=== PATIENT | female | born 1940 | race American Indian/Alaskan Native ===

== ENCOUNTER 2021-07-19 15:01 | Emergency (ER) | payer MEDICARE ==
--- NOTE | 2021-07-19 16:10 | Emergency Department Report ---
HPI - General Chief Complaint: Hypoglycemia Time Seen by Provider: 07/19/21 15:57 - HPI HPI: 81-year-old -[place] female [place] the emergency department [place] after she had a syncopal episode and was found to have a low blood sugar of about 30. The patient was given an amp of D50 and a peanut butter sandwich and she greatly improved. At the time of my examination the patient is awake, alert, oriented, AAO x3, and says that she feels "great" at her baseline. She takes NovoLog 70/30 with 30 units in the morning and 40 units around dinnertime. She did eat breakfast this morning, but did not eat any lunch. She also has a past medical history of hypertension and hyperlipidemia. She denies any fever, vision change, headache, chest pain, shortness of breath. ED Past Medical Hx - Social History Smoking Status: Never Smoker Substance Use Type: None - Medications Home Medications: Home Medications Medication Instructions Recorded Confirmed Last Taken Type Cetirizine HCl [ZyrTEC 10mg cap] 10 mg PO 07/19/21 07/19/21 09:00 History Ezetimibe [Zetia] 10 mg PO QDAY 07/19/21 07/19/21 07/18/21 19:00 History Furosemide [Lasix] 40 mg PO DAILY 07/19/21 07/19/21 07/19/21 08:00 History Gabapentin 300 mg PO 07/19/21 07/19/21 09:00 History Insulin NPH Hum/Reg Insulin Hm 30 units SQ QAM 07/19/21 07/19/21 07/19/21 08:00 History [Novolin 70-30 100 Unit/ml Vial] Insulin NPH Hum/Reg Insulin Hm 40 units SQ HS 07/19/21 07/19/21 07/18/21 20:00 History [Novolin 70-30 100 Unit/ml Vial] lisinopriL [Lisinopril] 10 mg PO DAILY 07/19/21 07/19/21 07/19/21 08:00 History ED Review of Systems ROS: Stated complaint: LOW GLUCLOSE Other details as noted in HPI Comment: All other systems reviewed and negative Constitutional: denies: chills, fever Eyes: denies: eye pain, vision change ENT: denies: ear pain, throat pain Respiratory: denies: cough, shortness of breath Cardiovascular: syncope. denies: chest pain, palpitations Gastrointestinal: denies: abdominal pain, vomiting Genitourinary: denies: dysuria, discharge Musculoskeletal: denies: back pain, arthralgia Skin: denies: rash, lesions Neurological: denies: headache, weakness Physical Exam - Physical Exam Vital Signs: Vital Signs 07/19/21 07/19/21 07/19/21 15:11 15:15 15:23 Temperature 98.5 F Pulse Rate 57 L 57 L Respiratory 18 18 Rate Blood Pressure 120/49 123/59 O2 Sat by Pulse 98 98 97 Oximetry Physical Exam: GENERAL: The patient is well-developed well-nourished. HENT: Normocephalic. Atraumatic. Patient has moist mucous membranes. EYES: Extraocular motions are intact. No nystagmus. NECK: Supple. Trachea is midline. CHEST/LUNGS: Clear to auscultation. There is no respiratory distress noted. HEART/CARDIOVASCULAR: Regular. There is no tachycardia. There is no murmur. ABDOMEN: Abdomen is soft, nontender. Patient has normal bowel sounds. SKIN: Skin is warm and dry. NEURO: The patient is awake, alert, and oriented. The patient is cooperative. The patient has no focal neurologic deficits. Normal speech. Cranial nerves II through XII grossly intact. No pronator drift or dysmetria. No facial asymmetry. MUSCULOSKELETAL: There is no tenderness or deformity. There is no limitation range of motion. ED Course Vital Signs 07/19/21 07/19/21 07/19/21 15:11 15:15 15:23 Temperature 98.5 F Pulse Rate 57 L 57 L Respiratory 18 18 Rate Blood Pressure 120/49 123/59 O2 Sat by Pulse 98 98 97 Oximetry ED Medical Decision Making - Lab Data Result diagrams: 07/19/21 16:54 07/19/21 16:54 Lab Results 07/19/21 07/19/21 07/19/21 Range/Units 15:06 16:54 16:54 WBC 5.7 (4.5-11.0) K/mm3 RBC 4.52 (3.65-5.03) M/mm3 Hgb 12.3 (10.1-14.3) gm/dl Hct 38.3 (30.3-42.9) % MCV 85 (79-97) fl MCH 27 L (28-32) pg MCHC 32 (30-34) % RDW 15.6 H (13.2-15.2) % Plt Count 204 (140-440) K/mm3 Lymph % (Auto) 23.6 (13.4-35.0) % Sunflower % (Auto) 4.6 (0.0-7.3) % Eos % (Auto) 1.3 (0.0-4.3) % Baso % (Auto) 0.4 (0.0-1.8) % Lymph # (Auto) 1.3 (1.2-5.4) K/mm3 Sunflower # (Auto) 0.3 (0.0-0.8) K/mm3 Eos # (Auto) 0.1 (0.0-0.4) K/mm3 Baso # (Auto) 0.0 (0.0-0.1) K/mm3 Seg Neutrophils % 70.1 H (40.0-70.0) % Seg Neutrophils # 4.0 (1.8-7.7) K/mm3 Sodium 136 L (137-145) mmol/L Potassium 4.6 (3.6-5.0) mmol/L Chloride 94.6 L (98-107) mmol/L Carbon Dioxide 28 (22-30) mmol/L Anion Gap 18 mmol/L BUN 23 H (7-17) mg/dL Creatinine 1.1 (0.6-1.2) mg/dL Estimated GFR 48 ml/min BUN/Creatinine Ratio 21 % Glucose 155 H (65-100) mg/dL POC Glucose 112 H (70-105) mg/dL Calcium 9.6 (8.4-10.2) mg/dL Total Bilirubin 0.20 (0.1-1.2) mg/dL AST 18 (5-40) units/L ALT 7 (7-56) units/L Alkaline Phosphatase 86 (35-129) units/L Troponin T (0.00-0.029) ng/mL Total Protein 7.9 (6.3-8.2) g/dL Albumin 3.8 L (3.9-5) g/dL Albumin/Globulin Ratio 0.9 % TSH (0.270-4.200) mlU/mL 07/19/21 07/19/21 07/19/21 Range/Units 16:54 16:54 17:03 WBC (4.5-11.0) K/mm3 RBC (3.65-5.03) M/mm3 Hgb (10.1-14.3) gm/dl Hct (30.3-42.9) % MCV (79-97) fl MCH (28-32) pg MCHC (30-34) % RDW (13.2-15.2) % Plt Count (140-440) K/mm3 Lymph % (Auto) (13.4-35.0) % Sunflower % (Auto) (0.0-7.3) % Eos % (Auto) (0.0-4.3) % Baso % (Auto) (0.0-1.8) % Lymph # (Auto) (1.2-5.4) K/mm3 Sunflower # (Auto) (0.0-0.8) K/mm3 Eos # (Auto) (0.0-0.4) K/mm3 Baso # (Auto) (0.0-0.1) K/mm3 Seg Neutrophils % (40.0-70.0) % Seg Neutrophils # (1.8-7.7) K/mm3 Sodium (137-145) mmol/L Potassium (3.6-5.0) mmol/L Chloride (98-107) mmol/L Carbon Dioxide (22-30) mmol/L Anion Gap mmol/L BUN (7-17) mg/dL Creatinine (0.6-1.2) mg/dL Estimated GFR ml/min BUN/Creatinine Ratio % Glucose (65-100) mg/dL POC Glucose 121 H (70-105) mg/dL Calcium (8.4-10.2) mg/dL Total Bilirubin (0.1-1.2) mg/dL AST (5-40) units/L ALT (7-56) units/L Alkaline Phosphatase (35-129) units/L Troponin T < 0.010 (0.00-0.029) ng/mL Total Protein (6.3-8.2) g/dL Albumin (3.9-5) g/dL Albumin/Globulin Ratio % TSH 1.170 (0.270-4.200) mlU/mL - EKG Data -: EKG Interpreted by Me EKG shows normal: sinus rhythm, axis, intervals, QRS complexes (low voltage), ST-T waves Rate: bradycardia (55 bpm) - EKG Data When compared to previous EKG there are: no significant change Interpretation: normal EKG (with mild bradycardia) - Medical Decision Making This patient presented to the emergency department with hypoglycemia causing a short unresponsive episode. The patient had a blood sugar of about 30 and was given D50 and peanut butter by EMS. Upon arrival to the emergency department she is awake, alert, oriented, and has no physical complaints. On examination she does not have any focal, motor or sensory deficits and her cranial nerves are intact. EKG did not have any morphology consistent with ST elevation myocardial infarction or any arrhythmia. Labs have been mostly unremarkable including CBC, metabolic panel, normal thyroid function, negative troponin. Patient's blood sugar has remained within normal limits while the patient has been reevaluated multiple times over multiple hours. She has been seen ambulatory in the emergency department and both appears and feels stable. Vital signs reassuring including being afebrile. For this reason she appears safe for discharge home at this time. She has been instructed to follow-up with her primary care physician and return to the ER with any worsening of her symptoms or with any acute distress. Critical Care Time: No Critical care attestation.: If time is entered above; I have spent that time in minutes in the direct care of this critically ill patient, excluding procedure time. ED Disposition Clinical Impression: Hypoglycemia, Unresponsive episode Disposition: 01 HOME / SELF CARE / HOMELESS Is pt being admited?: No Condition: Stable Instructions: Hypoglycemia Additional Instructions: Please follow-up with your primary care physician in the next few days. Keep a blood sugar log. Make sure that you eat 3 regular meals, or 5 smaller meals, throughout the day while taking your insulin. Return to the emergency department with any worsening of your symptoms, new or concerning symptoms not addressed during this current emergency department visit, or with any acute distress. Referrals: WARREN ANDERSON MD [Primary Care Provider] - 2-3 Days Forms: Accompanied Note Time of Disposition: 18:17
[2021-07-19 17:14] LABS: Basophils % (Auto) 0.4 % (0.0-1.8); Eosinophils # (Auto) 0.1 K/mm3 (0.0-0.4); Eosinophils % (Auto) 1.3 % (0.0-4.3); Hematocrit 38.3 % (30.3-42.9); Hemoglobin 12.3 gm/dl (10.1-14.3); Lymphocytes # (Auto) 1.3 K/mm3 (1.2-5.4); Lymphocytes % (Auto) 23.6 % (13.4-35.0); Mean Corpuscular HGB Conc 32 % (30-34); Mean Corpuscular Volume 85 fl (79-97); Monocytes # (Auto) 0.3 K/mm3 (0.0-0.8); Monocytes % (Auto) 4.6 % (0.0-7.3); Platelet Count 204 K/mm3 (140-440); Red Blood Count 4.52 M/mm3 (3.65-5.03); Red Cell Distribution Width 15.6 % (13.2-15.2)
[2021-07-19 17:32] LABS: Albumin 3.8 g/dL (3.9-5); Calcium 9.6 mg/dL (8.4-10.2)
[2021-07-19 17:40] VITALS: BP 141/56
--- NOTE | 2021-07-20 19:12 | Electrocardiograph Report ---
[facility] Test Date: 2021-07-19 Test Time: 18:31:34 Pat Name: TEGAN GIL Department: Room: Gender: F Cable Assembler: JESSI : 1940 Requested By: ANDRIY SARKAR Order Number: [id number] Reading MD: Yani Irwin Measurements Intervals [place]en Rate: 55 P: 35 MD: 182 QRS: -2 QRSD: 89 T: 57 QT: 456 QTc: 438 Interpretive Statements Sinus bradycardia Low voltage, precordial leads No previous ECG available for comparison Electronically Signed On 07-20-2021 19:11:50 EDT by Yani Irwin
== END 2021-07-19 18:41 | disposition home or self-care (01) ==
LOC: ED 15:01
DX: E87.6 Hypokalemia (principal); R40.4 Transient alteration of awareness; Z79.899 Other long term (current) drug therapy
CPT/HCPCS: 36415; 80053; 82962; 84443; 84484; 85025; 93005; 99284

== ENCOUNTER 2021-12-02 13:26 | Emergency (ER) | payer MEDICARE ==
[2021-12-02 17:02] LABS: Basophils # (Auto) 0.1 K/mm3 (0.0-0.1); Basophils % (Auto) 1.1 % (0.0-1.8); Eosinophils # (Auto) 0.1 K/mm3 (0.0-0.4); Eosinophils % (Auto) 0.8 % (0.0-4.3); Hematocrit 35.1 % (30.3-42.9); Hemoglobin 11.6 gm/dl (10.1-14.3); Lymphocytes # (Auto) 1.3 K/mm3 (1.2-5.4); Lymphocytes % (Auto) 20.3 % (13.4-35.0); Mean Corpuscular HGB Conc 33 % (30-34); Mean Corpuscular Volume 85 fl (79-97); Monocytes # (Auto) 0.3 K/mm3 (0.0-0.8); Platelet Count 228 K/mm3 (140-440); Red Blood Count 4.12 M/mm3 (3.65-5.03); Red Cell Distribution Width 15.2 % (13.2-15.2)
[2021-12-02 17:06] LABS: Bacteria,Urine 1+ /HPF (Negative); Bilirubin,Urine NEG (Negative); Blood,Urine NEG (Negative); Color,Urine Straw (Yellow); Mucus,Urine FEW /HPF; Protein,Urine <15 mg/dL mg/dL (Negative); Urobilinogen,Urine < 2.0 mg/dL (<2.0)
--- NOTE | 2021-12-02 17:11 | Emergency Department Report ---
ED Altered Mental Status HPI - General Chief Complaint: Altered Mental Status Stated Complaint: AMS/HYPOGLYCEMIA Time Seen by Provider: 12/02/21 16:22 Source: EMS Mode of arrival: Stretcher Limitations: No Limitations, Altered Mental Status - History of Present Illness Initial Comments: 81-year-old female the past medical history of asthma, dementia, and hypertension was currently alert and oriented x3 presents to the hospital after episode of altered mental status secondary to hypoglycemia. Blood glucose was 27 at the scene. Patient received D10 in route to the hospital and repeat blood glucose 126. Patient states that her blood glucose has been running low in the 70s and 80s for the past week. This morning it was 58. She still took her in sulin and had oatmeal and coffee but did not recheck her sugar prior to becoming altered. Patient has a implanted blood glucose sensor in her right upper arm patient currently takes Novolin 70/30 30 units in a.m. and 40 units in the p.m. Patient now feels back to normal and denies pain, fever, decreased p.o. intake or dysuria PMD: Dr. Christian Holguin - Related Data Home Medications Medication Instructions Recorded Confirmed Last Taken Cetirizine HCl [ZyrTEC 10mg cap] 10 mg PO 07/19/21 07/19/21 09:00 Ezetimibe [Zetia] 10 mg PO QDAY 07/19/21 07/19/21 07/18/21 19:00 Furosemide [Lasix] 40 mg PO DAILY 07/19/21 07/19/21 07/19/21 08:00 Gabapentin 300 mg PO 07/19/21 07/19/21 09:00 Insulin NPH Hum/Reg Insulin Hm 30 units SQ QAM 07/19/21 07/19/21 07/19/21 08:00 [Novolin 70-30 100 Unit/ml Vial] Insulin NPH Hum/Reg Insulin Hm 40 units SQ HS 07/19/21 07/19/21 07/18/21 20:00 [Novolin 70-30 100 Unit/ml Vial] lisinopriL [Lisinopril] 10 mg PO DAILY 07/19/21 07/19/21 07/19/21 08:00 Allergies Allergy/AdvReac Type Severity Reaction Status Date / Time No Known Allergies Allergy Verified 12/02/21 13:40 ED Review of Systems ROS: Stated complaint: AMS/HYPOGLYCEMIA Other details as noted in HPI Comment: All other systems reviewed and negative ED Past Medical Hx - Past Medical History Hx Hypertension: Yes Hx Asthma: Yes Hx Dementia: Yes - Social History Smoking Status: Never Smoker Substance Use Type: None - Medications Home Medications: Home Medications Medication Instructions Recorded Confirmed Last Taken Type Cetirizine HCl [ZyrTEC 10mg cap] 10 mg PO 07/19/21 07/19/21 09:00 History Ezetimibe [Zetia] 10 mg PO QDAY 07/19/21 07/19/21 07/18/21 19:00 History Furosemide [Lasix] 40 mg PO DAILY 07/19/21 07/19/21 07/19/21 08:00 History Gabapentin 300 mg PO 07/19/21 07/19/21 09:00 History Insulin NPH Hum/Reg Insulin Hm 30 units SQ QAM 07/19/21 07/19/21 07/19/21 08:00 History [Novolin 70-30 100 Unit/ml Vial] Insulin NPH Hum/Reg Insulin Hm 40 units SQ HS 07/19/21 07/19/21 07/18/21 20:00 History [Novolin 70-30 100 Unit/ml Vial] lisinopriL [Lisinopril] 10 mg PO DAILY 07/19/21 07/19/21 07/19/21 08:00 History ED Physical Exam - General Limitations: No Limitations, Altered Mental Status - Other Other exam information: General: No acute distress Head: Atraumatic Eyes: normal appearance ENT: Moist mucous membranes Neck: Normal appearance, no midline tenderness Chest: Clear to auscultation bilaterally CV: Regular rate and rhythm Abdomen: Soft, normal bowel sounds, nontender, nondistended, no rebound or guarding Back: Normal inspection Extremity: Normal inspection, full range of motion Neuro: Alert O x 3, no facial asymmetry, speech clear, no gross motor sensory deficit Psych: Appropriate behavior Skin: No rash ED Course Vital Signs 12/02/21 13:39 Temperature 98.2 F Pulse Rate 87 Respiratory 16 Rate Blood Pressure 149/60 [Right] O2 Sat by Pulse 98 Oximetry - Reevaluation(s) Reevaluation #1: 12/02/21 17:54 Patient provided a meal tray prior to discharge with improvement in glucose to 91. Patient given orange juice to drink prior to discharge and given orange juice and crackers to take during her ride home. - Consultations Consultation #1: 12/02/21 17:30 Case discussed with patient's PMD Dr. Christian Holguin who advises to decrease her insulin doses to 15 in a.m. and 20 in the p.m. Follow-up advised. - Lab Data Result diagrams: 12/02/21 16:43 12/02/21 16:43 Lab Results 12/02/21 12/02/21 12/02/21 Range/Units 15:33 16:43 16:43 WBC 6.4 (4.5-11.0) K/mm3 RBC 4.12 (3.65-5.03) M/mm3 Hgb 11.6 (10.1-14.3) gm/dl Hct 35.1 (30.3-42.9) % MCV 85 (79-97) fl MCH 28 (28-32) pg MCHC 33 (30-34) % RDW 15.2 (13.2-15.2) % Plt Count 228 (140-440) K/mm3 Lymph % (Auto) 20.3 (13.4-35.0) % Ness % (Auto) 4.0 (0.0-7.3) % Eos % (Auto) 0.8 (0.0-4.3) % Baso % (Auto) 1.1 (0.0-1.8) % Lymph # (Auto) 1.3 (1.2-5.4) K/mm3 Ness # (Auto) 0.3 (0.0-0.8) K/mm3 Eos # (Auto) 0.1 (0.0-0.4) K/mm3 Baso # (Auto) 0.1 (0.0-0.1) K/mm3 Seg Neutrophils % 73.8 H (40.0-70.0) % Seg Neutrophils # 4.7 (1.8-7.7) K/mm3 Sodium 139 (137-145) mmol/L Potassium 4.3 (3.6-5.0) mmol/L Chloride 100.7 (98-107) mmol/L Carbon Dioxide 26 (22-30) mmol/L Anion Gap 17 mmol/L BUN 18 H (7-17) mg/dL Creatinine 1.1 (0.6-1.2) mg/dL Estimated GFR 58 ml/min BUN/Creatinine Ratio 16 % Glucose 98 (65-100) mg/dL POC Glucose 91 (70-105) mg/dL Calcium 9.1 (8.4-10.2) mg/dL Urine Color (Yellow) Urine Turbidity (Clear) Urine pH (5.0-7.0) Ur Specific [place] (1.003-1.030) Urine Protein (Negative) mg/dL Urine Glucose (UA) (Negative) mg/dL Urine Ketones (Negative) mg/dL Urine Blood (Negative) Urine Nitrite (Negative) Urine Bilirubin (Negative) Urine Urobilinogen (<2.0) mg/dL Ur Leukocyte Esterase (Negative) Urine WBC (Auto) (0.0-6.0) /HPF Urine RBC (Auto) (0.0-6.0) /HPF U Epithel Cells (Auto) (0-13.0) /HPF Urine Bacteria (Auto) (Negative) /HPF Urine Mucus /HPF 12/02/21 12/02/21 12/02/21 Range/Units 16:46 17:45 Unknown WBC (4.5-11.0) K/mm3 RBC (3.65-5.03) M/mm3 Hgb (10.1-14.3) gm/dl Hct (30.3-42.9) % MCV (79-97) fl MCH (28-32) pg MCHC (30-34) % RDW (13.2-15.2) % Plt Count (140-440) K/mm3 Lymph % (Auto) (13.4-35.0) % Ness % (Auto) (0.0-7.3) % Eos % (Auto) (0.0-4.3) % Baso % (Auto) (0.0-1.8) % Lymph # (Auto) (1.2-5.4) K/mm3 Ness # (Auto) (0.0-0.8) K/mm3 Eos # (Auto) (0.0-0.4) K/mm3 Baso # (Auto) (0.0-0.1) K/mm3 Seg Neutrophils % (40.0-70.0) % Seg Neutrophils # (1.8-7.7) K/mm3 Sodium (137-145) mmol/L Potassium (3.6-5.0) mmol/L Chloride (98-107) mmol/L Carbon Dioxide (22-30) mmol/L Anion Gap mmol/L BUN (7-17) mg/dL Creatinine (0.6-1.2) mg/dL Estimated GFR ml/min BUN/Creatinine Ratio % Glucose (65-100) mg/dL POC Glucose 77 97 (70-105) mg/dL Calcium (8.4-10.2) mg/dL Urine Color Straw (Yellow) Urine Turbidity Clear (Clear) Urine pH 6.0 (5.0-7.0) Ur Specific [place] 1.008 (1.003-1.030) Urine Protein <15 mg/dl (Negative) mg/dL Urine Glucose (UA) Neg (Negative) mg/dL Urine Ketones Neg (Negative) mg/dL Urine Blood Neg (Negative) Urine Nitrite Neg (Negative) Urine Bilirubin Neg (Negative) Urine Urobilinogen < 2.0 (<2.0) mg/dL Ur Leukocyte Esterase Neg (Negative) Urine WBC (Auto) 1.0 (0.0-6.0) /HPF Urine RBC (Auto) 1.0 (0.0-6.0) /HPF U Epithel Cells (Auto) 4.0 (0-13.0) /HPF Urine Bacteria (Auto) 1+ (Negative) /HPF Urine Mucus Few /HPF - Medical Decision Making Patient in a hospital for several hours without recurrent hypoglycemia. She was provided a meal in the ED. basic labs including UA were unremarkable. Case discussed with her PMD with advised to reduce insulin doses. Follow-up advised Critical Care Time: No Critical care attestation.: If time is entered above; I have spent that time in minutes in the direct care of this critically ill patient, excluding procedure time. ED Disposition Clinical Impression: Hypoglycemia due to insulin Disposition: 01 HOME / SELF CARE / HOMELESS Is pt being admited?: No Does the pt Need Aspirin: No Condition: Stable Instructions: Preventing Hypoglycemia Additional Instructions: Your case was discussed with your primary care doctor Dr. Christian Holguin. He advises to reduce your morning insulin dose to 15 units and your evening insulin dose to 20 units. Continue to monitor your glucose levels. Follow-up with your doctor as soon as possible. Return if symptoms worsen as indicated by your discharge instructions Referrals: CHRISTIAN HOLGUIN MD [Staff Physician] - 2-3 Days Time of Disposition: 17:33
[2021-12-02 17:18] LABS: Calcium 9.1 mg/dL (8.4-10.2)
[2021-12-02 19:07] VITALS: BP 142/87
== END 2021-12-02 19:04 | disposition home or self-care (01) ==
LOC: ED 13:26
DX: E16.0 Drug-induced hypoglycemia without coma (principal); I10 Essential (primary) hypertension; J45.909 Unspecified asthma, uncomplicated; F03.90 Unspecified dementia, unspecified severity, without behavioral disturbance, psychotic disturbance, mood disturbance, and anxiety
CPT/HCPCS: 36415; 80048; 81001; 82962; 85025; 99283